=== PATIENT | female | born 1995 | race Asian ===

== ENCOUNTER 2025-09-24 19:18 | Emergency (ER) | payer OTHER, SELFPAY ==
[2025-09-24 19:30] VITALS: BP 99/72
[2025-09-24 19:51] LABS: Hematocrit 38.0 % (37.0-47.0); Hemoglobin 13.1 g/dL (12.0-16.0); Mean Corp Hgb Conc. 34.5 g/dL (33.0-37.0); Mean Corpuscular Volume 85.8 fL (81.0-99.0); Nucleated Red Blood Cells % 0 %; Platelet Count 207 10^3/uL (130-400); Red Cell Dist. Width 11.7 % (11.5-14.5)
[2025-09-24 20:03] LABS: HCG, Serum Qualitative Screen Negative
[2025-09-24 20:09] LABS: ALT (SGPT) 16 U/L (0-35); AST (SGOT) 23 U/L (14-36); Albumin 4.8 g/dl (3.5-5.0); Alkaline Phosphatase 34 U/L (38-126); Blood Urea Nitrogen 13 mg/dl (7-17); Calcium 9.4 mg/dl (8.4-10.2); Carbon Dioxide 28 mmol/L (22-30); Chloride 101 mmol/L (98-107); Glucose 87 mg/dl (70-99); Potassium 3.9 mmol/L (3.5-5.1); Sodium 137 mmol/L (135-145); Total Protein 7.9 g/dl (6.3-8.2); eGFR > 60.00
--- NOTE | 2025-09-24 23:34 | ED.GENMED ---
History of Present Illness
General
Chief Complaint: Visual Problem
Source: patient
Exam Limitations: none
Time Seen by Provider: 09/24/25 21:08
Nursing documentation reviewed up to this point in time: agreed with
History of Present Illness
History of Present Illness:
Note:
CHIEF COMPLAINT(S)
Transient vision loss, dizziness, and headache.
HISTORY OF PRESENT ILLNESS
The patient is a 29-year-old female who experienced a transient loss of vision at work, accompanied by dizziness, lasting approximately 10 to 25 minutes. Post this episode, she developed a severe headache localized to the left side, which improved
upon arrival at the hospital. The patient has experienced similar episodes in the past, often in correlation with anxiety and depression but describes this episode as more severe. She denies any current headache. There is a mention of prior
incidents, but without such intensity.
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 She denies exposure to chemicals.
PAST MEDICAL AND SURGICAL HISTORY
History of mild anxiety and depression-related symptoms. She has undergone a wisdom tooth extraction.
ALLERGIES
The patient reports allergies to walnut cake, tomatoes, and pecans.
MEDICATIONS
The patient is currently not taking any medications.
REVIEW OF SYSTEMS
- Ophthalmologic: Transient vision loss, described as seeing double.
- Neurological: Dizziness, headache on the left side. No current headache.
- General: No stress identified by the patient as a contributing factor.
PHYSICAL EXAM
General: Alert, no acute distress.
Skin: Warm, dry.
Head: Normocephalic, atraumatic.
Neck: Supple, trachea midline.
Eye, Ears, Nose, Mouth, and Throat: Oral mucosa moist.
Cardiovascular: Normal peripheral perfusion, No edema.
Respiratory: Respirations are non-labored.
Gastrointestinal: Abdomen nondistended.
Back: Normal range of motion, Normal alignment.
Musculoskeletal: Normal range of motion, normal strength.
Neurological: Alert and oriented to person, place, time, and situation. No focal neurological deficit observed.
Psychiatric: Cooperative, appropriate mood & affect.
PLAN
- Obtain a CAT scan to rule out a stroke or other neurological events.
- Consider starting baby aspirin daily as a precautionary measure until a definitive diagnosis is reached.
- Follow-up with neurology if the CAT scan results are inconclusive or if symptoms persist.
- Discuss stress, migraines, and anxiety as potential factors contributing to symptoms.
DIFFERENTIAL DIAGNOSIS
The Differential Diagnosis includes, in no particular order and is not limited to:
1. Migraine with aura
2. Transient ischemic attack
3. Stroke
4. Anxiety-related episodes
5. Vestibular migraine
6. Ophthalmic migraine
7. Stress-induced headache
8. Vertigo
9. Retinal detachment
10. Pseudotumor cerebri
CARE-UPDATE
09/24/25 - 23:30
CT scan results indicate no acute abnormalities in the head. No changes to current treatment plan based on imaging findings. Continue to monitor patient for any new symptoms.
Disposition:
SUMMARY OF ENCOUNTER
The patient, a 29-year-old female, initially experienced an aversion to bright lights followed by a migraine and double vision. Upon presenting to the emergency department, her symptoms had resolved. She reported having had similar episodes in the
past. A CT scan was performed and showed no acute abnormalities. A complete physical examination, including cerebellar testing, was normal and her memory was intact.
DIAGNOSIS
Likely atypical migraine (G43.09)
PLAN
The patient will follow up with neurology for further assessment and management of her symptoms.
INDEPENDENT REVIEW OF LABS AND INTERPRETATION OF TESTS
My independent interpretation of the CT scan indicates no acute abnormalities.
FOLLOW-UP INSTRUCTIONS
The patient is advised to follow up with neurology for a comprehensive evaluation of her condition.
MEDICAL DECISION MAKING
- Number and Complexity of Problems Addressed: Chronic conditions affecting care [history of mild anxiety and depression-related symptoms]. Differential diagnosis includes:
1. Migraine with aura
2. Transient ischemic attack
3. Stroke
4. Anxiety-related episodes
5. Vestibular migraine
6. Ophthalmic migraine
7. Stress-induced headache
8. Vertigo
9. Retinal detachment
10. Pseudotumor cerebri
- Data:
Category 1: No external records specifically reviewed in this encounter.
- Risk: Prescription medication was considered but ultimately not given. Consideration of Admission/Observation: Escalation of care including admission/observation was considered, however, the patient is safe for outpatient management with close
follow-up. Reasoning: Work-up reassuring, does not reveal any acute life/organ-threatening processes, patients symptoms well controlled upon reevaluation, reexamination is reassuring, vitals are stable, patient agreeable with discharge, reliable for
follow-up.
Phy Exam
Physical Exam
Physical Exam:
.
Course
Orders/Labs/Results
Orders:
Orders
09/24/25 19:38
Test Result ONCE
09/24/25 19:43
Complete Blood Count/With Diff Urgent
Comprehensive Metabolic Panel Urgent
HCG, Serum Qualitative Screen Urgent
09/24/25 21:58
CT Head W/o Iv Contrast Urgent
Comment:
Reason For Exam: left sided headavhe, blurry vision
Abnormal Lab Results
09/24/25
19:43
Alkaline Phosphatase 34 L U/L
(38-126)
09/24/25 19:43
09/24/25 19:43
Vital Signs
Initial and Last Documented VS:
Initial Vital Signs
Temp Pulse Resp BP Pulse Ox
97.8 F 71 16 99/72 99
09/24/25 19:30 09/24/25 19:30 09/24/25 19:30 09/24/25 19:30 09/24/25 19:30
Last Documented Vital Signs
Temp Pulse Resp BP Pulse Ox
97.8 F 71 16 99/72 99
09/24/25 19:30 09/24/25 19:30 09/24/25 19:30 09/24/25 19:30 09/24/25 19:30
*Pulse Oximetry
SaO2: 99
Oxygen Mode of Delivery: Room air
Patient hypoxic: no
*Critical Care Note
Total Time (30-74mins, 75-104mins- exclusive of procedures): Not Applicable
ED Attending Note
-
Portions of this chart may have been created with voice recognition software.� Occasional wrong word or��sound alike� substitutions may have occurred due to the inherent limitations of voice recognition software.
Discharge Plan
Departure
Patient Disposition: Home (Routine Discharge)
Date of Disposition: 09/24/25
Time of Disposition: 23:36
Patient with high blood pressure during this ER visit?: Yes
Discharge Problem:
Atypical migraine, Double vision
Instructions: Headache, Adult (DC), Double Vision (DC), BLOOD PRESSURE
Referrals:
Sis Kramer MD [Non-Admitting Privileges, Neurology]
Poly Mejias MD [Family Provider]
Activity Restrictions/Additional Instructions:
Thank You for choosing [facility].
It was a pleasure meeting you and taking part in your care. We hope for your continued healing and wellness.
Please read discharge instructions in their entirety. However, they are for general education and may not describe your exact diagnosis at discharge. Information on your ER visit and medical conditions were discussed with you along with appropriate
follow up information...
If indicated, please take your medications as instructed and indicated on discharge paperwork.
Please schedule a follow up appointment as directed. Call to schedule an appointment
Please return to the emergency department with ANY change in, persisting, or worsening of symptoms. If any of your symptoms do not improve, or persist, or become more severe within 6-12 hours, please return to the emergency department for further
care.
Please return to the emergency department if you develop a headache, neck pain/stiffness, fever greater than 100.4F, chest pain, shortness of breath, persistent nausea, vomiting, slurred speech, difficulty walking, numbness/tingling, weakness, signs
of infection or any other symptoms that are worrisome to you.
If you have any questions or concerns please do not hesitate to call the Hospital at .
Interventions
Interventions:
*Risk Screen - Suicide Last Done: 09/24/25 19:36
*General Assessment Last Done: 09/24/25 19:36
*Neglect/Abuse Screening Last Done: 09/24/25 21:12
*ED- Fall Risk Assessment Last Done: 09/24/25 21:11
*ED COVID-19 Vaccine History Last Done: 09/24/25 19:36
*ED Influenza Vaccine History Last Done: 09/24/25 19:36
ED- Neurological Assessment Last Done: 09/24/25 21:08
ED-EENT Assessment Last Done: 09/24/25 21:15
ED Swallowing Screen Last Done: 09/24/25 21:08
Discharge Date and Time
Print Language: EMIRATI
[2025-09-24 23:35] VITALS: BP 93/62
== END 2025-09-24 23:45 | disposition home or self-care (01) ==
LOC: EMR 19:18
PROVIDERS: Emergency Medicine; EMERGENCY PHYSICIAN Student in an Organized Health Care Education/Training Program; FAMILY PHYSICIAN Family Medicine
DX: G43.809 Other migraine, not intractable, without status migrainosus (principal); F41.9 Anxiety disorder, unspecified; F32.A Depression, unspecified
CPT/HCPCS: 99284; 70450; 80053; 84703; 85025